=== PATIENT | female | born 1990 | race Caucasian/White ===

== ENCOUNTER 2023-12-23 15:47 | Inpatient (IN) | payer OTHER, BC ==
[~2023-12-23 15:47] MED LIST: Bupivacaine 0.25% 10 ML SDV ONE
[2023-12-23] MEDS ORDERED: Lidocaine 1% 50 ML MDV INJECT PRN (19:03)
[2023-12-23] MEDS ORDERED: Ondansetron 4 MG/2 ML SDV IVPUSH PRN (19:03)
[2023-12-23] MEDS ORDERED: Calcium Carbonate 500 MG Tab.Chew PO PRN (19:03)
[2023-12-23] MEDS ORDERED: Nalbuphine 10 MG/ML Syringe IVPUSH PRN (19:03)
[2023-12-23] MEDS ORDERED: Oxytocin/Lactated Ringers 30 UNIT/500 ML BAG IV SCH (19:15)
[2023-12-23] MEDS ORDERED: ePHEDrine 50 MG/ML SDV IVPUSH PRN (19:35)
[2023-12-23] MEDS ORDERED: diphenhydrAMINE 50 MG/ML SDV IVPUSH PRN (19:35)
[2023-12-23] MEDS: Misoprostol 25 MCG (1/4 of 100 MCG) Tab VAG ONE (20:02)
[2023-12-23 20:05] LABS: BASOPHILS PERCENT AUTO 0.2 % (0.0-1.0); EOSINOPHILS ABSOLUTE AUTO 0.1 K/mm3 (0.0-0.4); EOSINOPHILS PERCENT AUTO 0.9 % (0.0-6.0); HEMATOCRIT 36.8 % (37.0-47.0); HEMOGLOBIN 12.7 gm/dl (12.0-16.0); IMMATURE GRAN ABSOLUTE AUTO 0.02 K/mm3 (0.00-0.05); IMMATURE GRAN PERCENT AUTO 0.2 % (0.0-0.4); LYMPHOCYTES ABSOLUTE AUTO 2.3 K/mm3 (1.0-4.8); MEAN CORPUSCULAR HEMOGLOBIN 31.5 pg (28.0-32.0); MEAN CORPUSCULAR HGB CONC 34.5 g/dl (32.0-36.0); MEAN CORPUSCULAR VOLUME 91.3 fl (83.0-99.0); MEAN PLATELET VOLUME 10.1 fl (9.4-12.3); MONOCYTES ABSOLUTE AUTO 0.7 K/mm3 (0.0-0.8); MONOCYTES PERCENT AUTO 7.1 % (0.0-8.0); NEUTROPHILS ABSOLUTE AUTO 6.1 K/mm3 (1.8-7.7); NEUTROPHILS PERCENT AUTO 66.6 % (41.0-71.0); PLATELET COUNT,PLT 236 K/mm3 (150-400); RED BLOOD CELL COUNT 4.03 M/mm3 (4.10-5.30); WHITE BLOOD CELL COUNT,WBC 9.21 K/mm3 (3.9-11.3)
[2023-12-23 20:06] LABS: CREATININE,URINE RAND 20.3 mg/dL (30.0-125.0)
[2023-12-23 20:08] LABS: PROTEIN,URINE RANDOM < 6.0 mg/dL (0.0-11.8)
[2023-12-23 20:41] LABS: CREATININE 0.8 mg/dL (0.55-1.02); EST CRCL DRUG DOSING (CG) 90.84 mL/min
[2023-12-23 20:48] LABS: URIC ACID 0.1 mg/dL (2.6-6.0)
[2023-12-24] MEDS: Misoprostol 25 MCG (1/4 of 100 MCG) Tab VAG PRN
[2023-12-24] MEDS: Lactated Ringers 1,000 ML IV SCH (07:19)
[2023-12-24] MEDS: Bupivacaine/fentaNYL/NS 100 ML Bag EPIDUR PRN (08:09)
[2023-12-24] MEDS: fentaNYL 100 MCG/2 ML SDV EPIDUR PRN (08:09)
[2023-12-24] MEDS: Oxytocin/Lactated Ringers 30 UNIT/500 ML BAG IV SCH (10:56)
[2023-12-24] MEDS: Ampicillin 2 GM in Sodium Chloride 0.9% 100 ML IV ONE (14:08)
[2023-12-24] MEDS: SODIUM CHLORIDE 0.9% IV ONE (14:40)
[2023-12-24] MEDS: GENTAMICIN IV ONE (14:40)
[2023-12-24] MEDS ORDERED: Acetaminophen 325 MG Tab PO PRN (18:18)
[2023-12-24] MEDS: Ibuprofen 600 MG Tab PO SCH (19:42)
[2023-12-24] MEDS: Witch Hazel Medicated Pads 40/Jar TOP PRN (19:42)
[2023-12-24] MEDS: Benzocaine/Menthol 20%-0.5% Spray 78 GM Cannister TOP PRN (19:42)
[2023-12-25] MEDS ORDERED: Docusate Sodium 100 MG Cap PO PRN (11:41)
[2023-12-25] MEDS: Docusate Sodium 100 MG Cap PO PRN (11:50)
[2023-12-26] MEDS: Measles, Mumps & Rubella Vaccine 0.5 ML SDV SUBCUT ONE (11:34)
== END 2023-12-26 12:00 | disposition home or self-care (01) | DRG 806 ==
LOC: JD.OB 15:47 → OBSVTOIN 12-24 15:47 → JD.OB 12-24 15:48
PROVIDERS: ADMIT Obstetrics & Gynecology; ATTEND Obstetrics & Gynecology
PROC: 10E0XZZ Delivery of Products of Conception, External Approach (ICD-10-PCS; principal; 2023-12-24)
PROC: 0KQM0ZZ Repair Perineum Muscle, Open Approach (ICD-10-PCS; 2023-12-24)
PROC: 3E0R3BZ Introduction of Anesthetic Agent into Spinal Canal, Percutaneous Approach (ICD-10-PCS; 2023-12-24)
PROC: 00HU33Z Insertion of Infusion Device into Spinal Canal, Percutaneous Approach (ICD-10-PCS; 2023-12-24)
DX: O13.4 Gestational [pregnancy-induced] hypertension without significant proteinuria, complicating childbirth (principal); Z3A.37 37 weeks gestation of pregnancy; Z37.0 Single live birth; O75.2 Pyrexia during labor, not elsewhere classified; O99.214 Obesity complicating childbirth; O70.1 Second degree perineal laceration during delivery
CPT/HCPCS: 36415; 51701; 51702; 59025; 59409; 82565; 82570; 83615; 84156; 84450; 84460; 84520; 84550; 85025; 86592; 86850; 86900; 86901; 90471; 90707; A9270-GY; J0290; J0665; J1580; J3010; J3490; J7120; J7999